=== PATIENT | male | born 1970 | race Caucasian/White ===

== ENCOUNTER → 2020-07-03 | Outpatient (CLI) | payer OTHER ==
[~2020-07-03] MED LIST: OMEP20ER PO
== END | disposition home or self-care (01) ==
LOC: LAB 12:16 → LAB SHORT 12:16
DX: L02.01 Cutaneous abscess of face (principal)
CPT/HCPCS: 87070; 87075; 87077; 87147; 87186; 87205

== ENCOUNTER 2022-08-13 05:42 | Day surgery (SDC) | payer OTHER ==
[~2022-08-13] VITALS: Ht 170.2 cm; Wt 95.6 kg
[~2022-08-13 05:42] MED LIST changes: +IBUP200 PO
--- NOTE | 2022-08-13 06:58 | NUR ---
Ambulatory in Day Surgery Surgical site prepped with 2% Chlorhexidine cloth wipe. History, Chart, Medications and Allergies reviewed before start of procedure.Lungs clear T/O to Auscultation. Patient confirms NPO status and agrees with scheduled surgery. Pre-Op teaching done. Pt verbalizes understanding. Patient States Post-Procedure ride home has been arranged. Patient reports completing Chlorhexadine shower X2 prior to admission to hospital.
--- NOTE | 2022-08-13 11:46 | NUR ---
Discharge instructions reviewed with patient. Patient verbalizes understanding. Copy given to patient to take home. DERMABOND X3 C/D/I. ICE PACK TO SITES FOR 20 MIN. PT RATES PAIN 3/10, ACCEPTABLE, PERCOCET GIVEN PER ORDER. READY FOR DC HOME. DRESSED, JOCK STRAP GIVEN. Discharged via wheelchair to private car for ride home.
== END 2022-08-13 11:45 | disposition home or self-care (01) ==
LOC: ORSCMMR 05:42 → ORD 07:30 → ORSCMMR 11:45
PROVIDERS: Surgery
PROC: 0YU54JZ Supplement Right Inguinal Region with Synthetic Substitute, Percutaneous Endoscopic Approach (ICD-10-PCS; principal; 2022-08-13 07:30)
DX: K40.30 Unilateral inguinal hernia, with obstruction, without gangrene, not specified as recurrent (principal); E66.9 Obesity, unspecified; Z68.33 Body mass index [BMI] 33.0-33.9, adult; K21.9 Gastro-esophageal reflux disease without esophagitis
CPT/HCPCS: 49650; S2900; A9270; C1781; J0690; J1100; J1885; J2250; J2405; J2704; J2795; J3010; J7120

== ENCOUNTER 2023-01-29 06:21 | Emergency (ER) | payer OTHER ==
[~2023-01-29] VITALS: Ht 170.2 cm; Wt 93.0 kg
[2023-01-29] MEDS ORDERED: SULTRIDS PO (07:41)
[2023-01-29 07:59] VITALS: BP 129/77
== END 2023-01-29 08:00 | disposition home or self-care (01) ==
LOC: ER 06:21
DX: L03.811 Cellulitis of head [any part, except face] (principal); L73.9 Follicular disorder, unspecified
CPT/HCPCS: 99283-25